=== PATIENT | female | born 1940 | race Caucasian/White ===

== ENCOUNTER 2016-12-30 12:45 | Observation (INO) | payer BC ==
[~2016-12-30] VITALS: Ht 134.6 cm; Wt 46.0 kg
[~2016-12-30 12:45] MED LIST: ACET325T33 PO
[2016-12-30] MEDS ORDERED: ASPIRIN 81 MG TAB PO STA (15:43)
[2016-12-30] MEDS ORDERED: NITROGLYCERIN 2% 1 GM OINT PKT TD STA (15:43)
[2016-12-30] MEDS ORDERED: NITROGLYCERIN (SL) 0.4 MG TAB SL PRN ×2 (16:00→18:30)
--- NOTE | 2016-12-30 16:08 | RADRPT ---
PROCEDURE: XR Chest. CLINICAL INDICATION: Chest pain. TECHNIQUE: Single frontal view. COMPARISON: None. FINDINGS: The lungs are clear. The heart is mildly enlarged. There is no pleural effusion. There is no pneumothorax. IMPRESSION: 1. Mild cardiomegaly. 2. Otherwise normal chest x-ray. RPTAT: QQ .Edgardo Santillan MD, MD Date Time Electronically viewed and signed by .Edgardo Santillan MD, MD on 12/30/2016 16:08 .R/
[2016-12-30 16:57] LABS: BASOPHILS % 0.4 % (0.0-2.0); EOSINOPHILS # 0.1 10^3/ul (0.0-0.5); EOSINOPHILS % 1.8 % (0.0-7.0); HEMATOCRIT 42.1 % (37.0-47.0); HEMOGLOBIN 14.2 g/dl (12.0-16.0); LYMPHOCYTES # 2.2 10^3/ul (0.8-2.9); LYMPHOCYTES % 31.6 % (15.0-51.0); MEAN CORPUSCULAR HEMOGLOBIN 31.6 pg (29.0-33.0); MEAN CORPUSCULAR HGB CONC 33.7 g/dl (32.0-37.0); MEAN CORPUSCULAR VOLUME 93.6 fl (82.0-101.0); MEAN PLATELET VOLUME 10.7 fl (7.4-10.4); MONOCYTE # 0.4 10^3/ul (0.3-0.9); MONOCYTES % 6.2 % (0.0-11.0); NEUTROPHIL # 4.2 10^3/ul (1.6-7.5); NEUTROPHILS % 59.9 % (39.0-77.0); PLATELET COUNT 208 10^3/UL (140-415); RED CELL DISTRIBUTION WIDTH 13.7 % (11.5-14.5); WHITE BLOOD COUNT 7.1 10^3/ul (4.8-10.8)
[2016-12-30] MEDS ORDERED: ONDANSETRON 4 MG INJ IV PRN ×3 (17:00→18:30)
[2016-12-30] MEDS ORDERED: ACETAMINOPHEN 325 MG TAB PO PRN ×3 (17:00→18:30)
[2016-12-30 17:01] LABS: POSITIVE DIFF @See below
[2016-12-30 17:14] LABS: ANION GAP 15 (8-16); BLOOD UREA NITROGEN 19 mg/dl (7-20); CALCIUM 9.1 mg/dl (8.4-10.2); CARBON DIOXIDE 23 mmol/L (21-31); CHLORIDE 107 mmol/L (97-110); CREATININE 0.67 mg/dl (0.44-1.00); GLUCOSE 96 mg/dl (70-220); POTASSIUM 4.7 mmol/L (3.5-5.1); SODIUM 140 mmol/L (135-144)
[2016-12-30 17:35] LABS: TROPONIN-I < 0.012 ng/ml (0.00-0.12)
--- NOTE | 2016-12-30 18:27 | ERA ---
ER Documentation Chief Complaint Date/Time DATE: 12/30/16 TIME: 18:25 Chief Complaint sent by pmd for cp eval and abnormal ekg c/o cp on and off x 6 mos HPI Patient is a 76-year-old female with possible coronary disease and hypertension who presents with chest pain and shortness of breath. She was seen by her primary doctor Dr. Katz who sent her to the ER because she was concerned about the shortness of breath and an EKG which has changed from a prior EKG. She now is flipped T waves. She has had breathing problems for 6 months per the daughter. The patient has midsternal chest pain as well. She gets short of breath with eating a minimal exertion like walking. She has had no treatment as of yet. ROS All systems reviewed and are negative except as per history of present illness. Medications Home Meds Active Scripts Acetaminophen* (Tylenol*) 325 Mg Tablet, 1 TAB PO Q6 Y for PAIN AND OR ELEVATED TEMP, #20 TAB Prov:HANNA SANTILLAN PA-C 10/15/15 Allergies Allergies: Coded Allergies: Penicillins (Verified Allergy, Intermediate, rash, 12/30/16) PMhx/Soc History of Surgery: No Anesthesia Reaction: No Hx Neurological Disorder: No Hx Respiratory Disorders: No Hx Cardiac Disorders: Yes (HTN) Hx Psychiatric Problems: No Hx Miscellaneous Medical Probl: No Hx Alcohol Use: No Hx Substance Use: No Hx Tobacco Use: No Smoking Status: Never smoker FmHx Family History: No coronary disease Physical Exam Vitals Vital Signs Date Time Temp Pulse Resp B/P Pulse Ox O2 Delivery O2 Flow Rate FiO2 12/30/16 18:00 98.6 50 16 131/67 97 12/30/16 16:26 98.6 51 16 145/63 97 12/30/16 12:53 98.6 51 18 159/108 97 Physical Exam Const: No acute distress Head: Atraumatic Eyes: Normal Conjunctiva ENT: Normal External Ears, Nose and Mouth. Neck: Full range of motion..~ No meningismus. Resp: Clear to auscultation bilaterally Cardio: Regular rate and rhythm, no murmurs Abd: Soft, non tender, non distended. Normal bowel sounds Skin: No petechiae or rashes Back: No midline or flank tenderness Ext: No cyanosis, or edema Neur: Awake and alert Psych: Normal Mood and Affect Result Diagram: 12/30/16 1630 12/30/16 1630 Results 24 hrs Laboratory Tests Test 12/30/16 16:30 White Blood Count 7.110^3/ul Red Blood Count 4.5010^6/ul Hemoglobin 14.2g/dl Hematocrit 42.1% Mean Corpuscular Volume 93.6fl Mean Corpuscular Hemoglobin 31.6pg Mean Corpuscular Hemoglobin Concent 33.7g/dl Red Cell Distribution Width 13.7% Platelet Count 35534^3/UL Mean Platelet Volume 10.7fl Neutrophils % 59.9% Lymphocytes % 31.6% Monocytes % 6.2% Eosinophils % 1.8% Basophils % 0.4% Nucleated Red Blood Cells % 0.0/100WBC Neutrophils # 4.210^3/ul Lymphocytes # 2.210^3/ul Monocytes # 0.410^3/ul Eosinophils # 0.110^3/ul Basophils # 0.010^3/ul Nucleated Red Blood Cells # 0.010^3/ul Sodium Level 140mmol/L Potassium Level 4.7mmol/L Chloride Level 107mmol/L Carbon Dioxide Level 23mmol/L Anion Gap 15 Blood Urea Nitrogen 19mg/dl Creatinine 0.67mg/dl Glucose Level 96mg/dl Calcium Level 9.1mg/dl Troponin I < 0.012ng/ml Current Medications Medications (Trade) Dose Ordered Sig/Seven Route PRN Reason Start Time Stop Time Status Last Admin Dose Admin Aspirin (Aspirin) 162 mg ONCE STAT PO 12/30/16 15:43 12/30/16 15:44 DC 12/30/16 16:23 Nitroglycerin (Nitroglycerin 2% Oint) 1 inch ONCE STAT TD 12/30/16 15:43 12/30/16 15:44 DC 12/30/16 16:23 Nitroglycerin (Nitroglycerin (Sl Tab) 0.4 Mg) 1 tab Q5M UP TO 3 DOSES PRN SL CHEST PAIN 12/30/16 16:00 12/30/16 16:23 Ondansetron HCl (Zofran Inj) 4 mg ER BRIDGE PRN IV NAUSEA AND/OR VOMITING 12/30/16 17:00 12/31/16 16:59 Acetaminophen (Tylenol Tab) 650 mg ER BRIDGE PRN PO MILD PAIN/FEVER 12/30/16 17:00 12/31/16 16:59 12/30/16 17:36 Ondansetron HCl (Zofran Inj) 4 mg ER BRIDGE PRN IV NAUSEA AND/OR VOMITING 12/30/16 18:00 12/31/16 17:59 Acetaminophen (Tylenol Tab) 650 mg ER BRIDGE PRN PO MILD PAIN/FEVER 12/30/16 18:00 12/31/16 17:59 IV Flush (NS 3 ml) 3 ml PER PROTOCOL IV 12/30/16 18:30 UNV Lorazepam (Ativan) 0.5 mg Q6H PRN IV ANXIETY 12/30/16 18:30 UNV Ondansetron HCl (Zofran Inj) 4 mg Q6H PRN IV NAUSEA AND/OR VOMITING 12/30/16 18:30 UNV Aspirin (Aspirin) 81 mg DAILY PO 12/31/16 09:00 UNV Nitroglycerin (Nitroglycerin (Sl Tab) 0.4 Mg) 1 tab Q5M PRN SL CHEST PAIN 12/30/16 18:30 UNV Acetaminophen (Tylenol Tab) 650 mg Q6H PRN PO PAIN LEVEL 1-3 OR FEVER 12/30/16 18:30 UNV Acetaminophen/ Hydrocodone Bitart ([place] (5/325)) 1 tab Q6H PRN PO PAIN LEVEL 4-6 12/30/16 18:30 UNV Acetaminophen/ Hydrocodone Bitart ([place] (5/325)) 2 tab Q6H PRN PO PAIN LEVEL 7-10 12/30/16 18:30 UNV Docusate Sodium (Colace) 100 mg Q12H PRN PO CONSTIPATION 12/30/16 18:30 UNV Magnesium Hydroxide (Milk Of Mag) 30 ml DAILY PRN PO CONSTIPATION 12/30/16 18:30 UNV Bisacodyl (Dulcolax Supp) 10 mg DAILY PRN [place] CONSTIPATION 12/30/16 18:30 UNV Famotidine (Pepcid) 20 mg Q12 PO 12/30/16 21:00 UNV Enoxaparin Sodium (Lovenox) 40 mg DAILY SC 12/31/16 09:00 UNV Procedures/MDM EKG read by me: Rate/Rhythm: Sinus bradycardia Intervals: Normal Impression: Sinus bradycardia with T waves EKG #2 pending at this time Chest x-ray shows no pneumonia or pneumothorax per radiology. Patient is a 76-year-old female with cardiac risk factors who presents with chest pain and shortness of breath. I am concerned for possible acute coronary syndrome. I doubt pneumonia, pneumothorax, pulmonary embolism, or aortic dissection. I spoke with Dr. Dawn for admission to a telemetry bed as the patient has [facility]. The patient will be admitted to a telemetry bed for further workup. She was given aspirin and nitroglycerin empirically. Departure Diagnosis: Primary Impression: Chest pain Qualified Code: R07.9 - Chest pain, unspecified type Condition: YARON Will MD Dec 30, 2016 18:27
[2016-12-30] MEDS ORDERED: BISACODYL 10 MG SUPP PR PRN (18:30)
[2016-12-30] MEDS ORDERED: LORAZEPAM 2 MG INJ IV PRN (18:30)
[2016-12-30] MEDS ORDERED: NACL 0.9% 3 ML SYG IV SCH (18:30)
[2016-12-30] MEDS ORDERED: DOCUSATE SODIUM 100 MG CAP PO PRN (18:30)
[2016-12-30] MEDS ORDERED: HYDROCODONE/APAP (5/325) TAB PO PRN ×2 (18:30)
[2016-12-30] MEDS ORDERED: MAGNESIUM HYDROXIDE 30ML CUP PO PRN (18:30)
--- NOTE | 2016-12-30 19:13 | HP ---
Date/Time of Note Date/Time of Note DATE: 12/30/16 TIME: 19:00 Assessment/Plan VTE Prophylaxis VTE Prophylaxis Intervention: LMWH Lines/Catheters IV Catheter Type (from Nrsg): Saline Lock Assessment/Plan Assessment/Plan 76-year-old female with: 1. Chest pressure, shortness of breath with history of hypertension, according to the PCP EKGs today are change from 6 months ago in terms of the T-wave findings, patient has been admitted to telemetry observation for rule out acute coronary syndrome. Serial cardiac enzymes 2D echocardiogram, check fasting lipid panel Aspirin, blood pressure control Lexiscan stress test in a.m. if cardiac enzymes negative, cardiology consult placed 2. Hypertension: Continue benazepril, hydralazine as needed Prophylaxis: Lovenox for DVT prophylaxis, Pepcid for GI prophylaxis Disposition: Telemetry observation, stress test in a.m., discharge planning depending on stress test result. HPI/ROS Admit Date/Time Admit Date/Time Hx of Present Illness Chief complaint: Chest pain, shortness of breath History of presenting illness: 76-year-old female with history of hypertension, possibly hyperlipidemia who was sent over to the emergency department by her primary care physician with complaints of chest pain, shortness of breath and according to the PCP EKG changes concerning for myocardial ischemia. The patient reports that she has been having substernal chest pressure like something is squeezing on and off for the past 6 months. She reports dyspnea on exertion, she denies orthopnea or PND. She also reports that she feels a squeezing and shortness of breath in the substernal area when she is eating. She denies nausea, vomiting, diaphoresis, lightheadedness, chills. She reports having a cough like a congestion over the past 2 weeks occasionally productive of white phlegm. She denies any previous history of COPD, chronic bronchitis or asthma. She denies any lower extremity edema. According to the daughter, they were told that 3 years ago she almost had " heart attack" but the patient never had a formal diagnosis of coronary artery disease. No history of diabetes mellitus. ROS Constitutional: no complaints Respiratory: cough, shortness of breath Cardiovascular: chest pain Gastrointestinal: no complaints Genitourinary: no complaints Musculoskeletal: no complaints Skin: no complaints Neurologic: no complaints Endocrine: no complaints Psychological: no complaints PMH/Family/Social Past Medical History Hypertension Past Surgical History Past Surgical Hx: appendectomy (Remotely), cholecystectomy (Remotely) Social History Alcohol Use: none Smoking Status: Never smoker Drug Use: none Exam/Review of Systems Vital Signs Vitals Vital Signs Date Time Temp Pulse Resp B/P Pulse Ox O2 Delivery O2 Flow Rate FiO2 12/30/16 18:45 58 19 154/68 98 Room Air 12/30/16 18:00 98.6 Exam Constitutional: alert, oriented, well developed Respiratory: clear to auscultation, normal air movement Cardiovascular: nl pulses, regular rate and rhythm Gastrointestinal: non-tender, soft Musculoskeletal: nl extremities to inspection Extremities: normal pulses, other (No edema, clubbing, cyanosis) Neurological: CAR FERRY CAPTAIN II-XII intact, nl mental status, nl speech, nl strength Labs Result Diagram: 12/30/16 1630 12/30/16 1630 Medications Medications Current Medications Lorazepam (Ativan) 0.5 mg Q6H PRN IV ANXIETY; Start 12/30/16 at 18:30 Ondansetron HCl (Zofran Inj) 4 mg Q6H PRN IV NAUSEA AND/OR VOMITING; Start at 18:30 Aspirin (Aspirin) 81 mg DAILY PO ; Start 12/31/16 at 09:00 Nitroglycerin (Nitroglycerin (Sl Tab) 0.4 Mg) 1 tab Q5M PRN SL CHEST PAIN; Start 12/30/16 at 18:30 Acetaminophen (Tylenol Tab) 650 mg Q6H PRN PO PAIN LEVEL 1-3 OR FEVER; Start at 18:30 Acetaminophen/ Hydrocodone Bitart ([place] (5/325)) 1 tab Q6H PRN PO PAIN LEVEL 4 -6; Start 12/30/16 at 18:30 Acetaminophen/ Hydrocodone Bitart ([place] (5/325)) 2 tab Q6H PRN PO PAIN LEVEL 7 -10; Start 12/30/16 at 18:30 Docusate Sodium (Colace) 100 mg Q12H PRN PO CONSTIPATION; Start 12/30/16 at 18: 30 Magnesium Hydroxide (Milk Of Mag) 30 ml DAILY PRN PO CONSTIPATION; Start at 18:30 Bisacodyl (Dulcolax Supp) [address] CONSTIPATION; Start 12/30/16 at 18 :30 Famotidine (Pepcid) 20 mg Q12 PO ; Start 12/30/16 at 21:00 Enoxaparin Sodium (Lovenox) 40 mg DAILY SC ; Start 12/31/16 at 09:00 Procedures Procedures PROCEDURE: XR Chest. CLINICAL INDICATION: Chest pain. TECHNIQUE: Single frontal view. COMPARISON: None. FINDINGS: The lungs are clear. The heart is mildly enlarged. There is no pleural effusion. There is no pneumothorax. IMPRESSION: 1. Mild cardiomegaly. 2. Otherwise normal chest x-ray. RPTAT: QQ .Edgardo Santillan MD, MD Date Time Electronically viewed and signed by .Edgardo Santillan MD, MD on 12/30/2016 16:08 .R/ EKG at PCP office, showing some anterolateral T-wave inversion otherwise no acute ischemic changes, EKG here at [facility] similar. On both EKGs heart rate in the high 50s CHERYL GARAY Dec 30, 2016 19:13
[2016-12-30] MEDS ORDERED: hydrALAzine 20 MG INJ IV PRN (19:30)
[2016-12-30 20:40] VITALS: TEMP 98.6
[2016-12-30 20:55] VITALS: Ht 134.6 cm; Wt 46.0 kg
[2016-12-30 21:15] VITALS: PULSE 49
[2016-12-30] MEDS: BENAZEPRIL 20 MG TAB PO SCH (21:23)
[2016-12-30] MEDS: FAMOTIDINE 20 MG TAB PO SCH (21:24)
[2016-12-30 21:46] VITALS: BP 133/62; RESP 16
[2016-12-30 22:59] LABS: CREATINE KINASE 53 IU/L (23-200)
[2016-12-30 23:13] LABS: CK-MB 0.65 ng/ml (0.0-2.4)
[2016-12-30 23:14] LABS: TROPONIN-I < 0.012 ng/ml (0.00-0.12)
[2016-12-31] VITALS (10 sets, daily range): BP systolic 107–114; BP diastolic 51–70; PULSE 44–68; RESP 16–17
[2016-12-31 04:34] LABS: CREATINE KINASE 50 IU/L (23-200)
[2016-12-31 04:36] LABS: ALBUMIN 3.8 g/dl (3.3-4.9); ALBUMIN/GLOBULIN RATIO 0.95; BILIRUBIN,INDIRECT 0.9 mg/dl (0-1.1); BILIRUBIN,TOTAL 0.9 mg/dl (0.2-1.3); CHOL/HDL RATIO 6.6 RATIO; CREATININE 0.79 mg/dl (0.44-1.00); POTASSIUM 4.1 mmol/L (3.5-5.1); TOTAL PROTEIN 7.8 g/dl (6.1-8.1)
[2016-12-31 04:47] LABS: CK-MB 0.51 ng/ml (0.0-2.4)
[2016-12-31 04:51] LABS: TROPONIN-I < 0.012 ng/ml (0.00-0.12)
[2016-12-31] MEDS: FAMOTIDINE 20 MG TAB PO SCH (08:30)
[2016-12-31] MEDS: BENAZEPRIL 20 MG TAB PO SCH (08:31)
[2016-12-31] MEDS ORDERED: ENOXAPARIN 40 MG/0.4 ML SYG SC SCH (09:00)
[2016-12-31] MEDS ORDERED: ASPIRIN 81 MG TAB PO SCH (09:00)
--- NOTE | 2016-12-31 11:20 | CONS ---
Date/Time of Note Date/Time of Note DATE: 12/31/16 TIME: 11:11 Assessment/Plan Assessment/Plan Additional Assessment/Plan Atypical chest pain HTN Abnormal EKG -normal trops and atypical chestpain -continue bp management -no dynamic ekg changes -lexiscan cardiolyte today > if normal d/c home Consultation Date/Type/Reason Admit Date/Time Hx of Present Illness Patient is a 76-year-old female with possible coronary disease and hypertension who presents with chest pain and shortness of breath. She was seen by her primary doctor Dr. Katz who sent her to the ER because she was concerned about the shortness of breath and an EKG which has changed from a prior EKG. She now is flipped T waves. She has had breathing problems for 6 months per the daughter. The patient has midsternal chest pain as well. She gets short of breath with eating a minimal exertion like walking. She has had no treatment as of yet. She has no exdritnal symtpoms with no cardiac history and hemodynacmially stable Respiratory: cough, shortness of breath Cardiovascular: chest pain Gastrointestinal: no complaints Genitourinary: no complaints Musculoskeletal: no complaints Skin: no complaints Neurologic: no complaints Psychological: no complaints Past Surgical History Past Surgical Hx: appendectomy (Remotely), cholecystectomy (Remotely) Social History Alcohol Use: none Smoking Status: Never smoker Drug Use: none Exam/Review of Systems Vital Signs Vitals Vital Signs Date Time Temp Pulse Resp B/P Pulse Ox O2 Delivery O2 Flow Rate FiO2 12/31/16 08:22 54 12/31/16 07:45 97.5 17 110/51 97 12/30/16 20:40 Room Air Results Result Diagram: 12/30/16 1630 12/31/16 0357 Results 24 hrs Laboratory Tests Test 12/30/16 16:30 12/30/16 22:32 12/31/16 03:52 12/31/16 03:57 White Blood Count 7.1 Red Blood Count 4.50 Hemoglobin 14.2 Hematocrit 42.1 Mean Corpuscular Volume 93.6 Mean Corpuscular Hemoglobin 31.6 Mean Corpuscular Hemoglobin Concent 33.7 Red Cell Distribution Width 13.7 Platelet Count 208 Mean Platelet Volume 10.7 H Neutrophils % 59.9 Lymphocytes % 31.6 Monocytes % 6.2 Eosinophils % 1.8 Basophils % 0.4 Nucleated Red Blood Cells % 0.0 Neutrophils # 4.2 Lymphocytes # 2.2 Monocytes # 0.4 Eosinophils # 0.1 Basophils # 0.0 Nucleated Red Blood Cells # 0.0 Sodium Level 140 142 Potassium Level 4.7 4.1 Chloride Level 107 111 H Carbon Dioxide Level 23 24 Anion Gap 15 11 Blood Urea Nitrogen 19 23 H Creatinine 0.67 0.79 Glucose Level 96 98 Calcium Level 9.1 9.0 Troponin I < 0.012 < 0.012 < 0.012 B-Type Natriuretic Peptide 186 H Creatine Kinase 53 50 Creatine Kinase Index 1.2 1.0 Creatinine Kinase MB (Mass) 0.65 0.51 Hemoglobin A1c 5.8 Total Bilirubin 0.9 Direct Bilirubin 0.00 Indirect Bilirubin 0.9 Aspartate Amino Transf (AST/SGOT) 25 Alanine Aminotransferase (ALT/SGPT) 33 Alkaline Phosphatase 103 Total Protein 7.8 Albumin 3.8 Globulin 4.00 H Albumin/Globulin Ratio 0.95 Triglycerides Level 264 H Cholesterol Level 225 H LDL Cholesterol, Calculated 138 HDL Cholesterol 34 Cholesterol/HDL Ratio 6.6 Medications Medications Current Medications Lorazepam (Ativan) 0.5 mg Q6H PRN IV ANXIETY; Start 12/30/16 at 18:30 Ondansetron HCl (Zofran Inj) 4 mg Q6H PRN IV NAUSEA AND/OR VOMITING; Start at 18:30 Aspirin (Aspirin) 81 mg DAILY PO Last administered on 12/31/16t 08:29; Admin Dose 81 MG; Start 12/31/16 at 09:00 Nitroglycerin (Nitroglycerin (Sl Tab) 0.4 Mg) 1 tab Q5M PRN SL CHEST PAIN; Start 12/30/16 at 18:30 Acetaminophen (Tylenol Tab) 650 mg Q6H PRN PO PAIN LEVEL 1-3 OR FEVER; Start at 18:30 Acetaminophen/ Hydrocodone Bitart ([place] (5/325)) 1 tab Q6H PRN PO PAIN LEVEL 4 -6; Start 12/30/16 at 18:30 Acetaminophen/ Hydrocodone Bitart ([place] (5/325)) 2 tab Q6H PRN PO PAIN LEVEL 7 -10; Start 12/30/16 at 18:30 Docusate Sodium (Colace) 100 mg Q12H PRN PO CONSTIPATION; Start 12/30/16 at 18: 30 Magnesium Hydroxide (Milk Of Mag) 30 ml DAILY PRN PO CONSTIPATION; Start at 18:30 Bisacodyl (Dulcolax Supp) 10 mg DAILY PRN [place] CONSTIPATION; Start 12/30/16 at 18 :30 Famotidine (Pepcid) 20 mg Q12 PO Last administered on 12/31/16 08:30; Admin Dose 20 MG; Start 12/30/16 at 21:00 Enoxaparin Sodium (Lovenox) 40 mg DAILY SC Last administered on 12/31/16 08:30 ; Admin Dose 40 MG; Start 12/31/16 at 09:00 Benazepril HCl (Lotensin) 20 mg BID PO Last administered on 12/30/16 21:23; Admin Dose 20 MG; Start 12/30/16 at 21:00 Hydralazine HCl (Apresoline) 10 mg Q8H PRN IV ELEVATED BLOOD PRESSURE; Start at 19:30 SHARAD FAM MD Dec 31, 2016 11:20
[2016-12-31] MEDS ORDERED: REGADENOSON 0.4 MG/5 ML SYG ONE (11:25)
--- NOTE | 2016-12-31 15:38 | RADRPT ---
PROCEDURE: Nuclear medicine myocardial stress and rest scan. CLINICAL INDICATION: Chest pain. TECHNIQUE: The patient was stressed with 0.4 mg IV Lexiscan. 9.0 mCi technetium 99m Tetrofosmin ( Myoview) was administered rest. 33.5 mCi technetium 99m Tetrofosmin (Myoview) was administered dur ing stress. Images were obtained and reconstructed in the short axis, horizontal long axis, and chikis tical long axis. Gated images were obtained and ejection fraction was calculated. COMPARISON: No prior study is available for comparison. FINDINGS: The stress and rest images demonstrate normal uptake throughout. There is no fixed abnormality or r eversible abnormality. There is no evidence of transient ischemic dilatation. Wall motion is normal. There is normal wall thickening during systole. Ejection fraction at stress is 82%. IMPRESSION: 1. No evidence of stress induced myocardial ischemia. 2. Ejection fraction at stress is 82%. RPTAT: QQ .Edgardo Santillan MD, MD Date Time Electronically viewed and signed by .Edgardo Santillan MD, on 12/31/2016 15:37 .R/
--- NOTE | 2016-12-31 16:40 | PN ---
Date/Time of Note Date/Time of Note DATE: 12/31/16 TIME: 16:35 Assessment/Plan VTE Prophylaxis VTE Prophylaxis Intervention: LMWH Lines/Catheters IV Catheter Type (from Nrsg): Saline Lock Urinary Cath still in place: No Assessment/Plan Assessment/Plan 76-year-old female with: 1. Chest pressure, shortness of breath with history of hypertension, according to the PCP EKGs today are change from 6 months ago in terms of the T-wave findings, patient has been admitted to telemetry observation for rule out acute coronary syndrome. 2D echocardiogram wnl, Serial cardiac enzymes negative and stress test negative Aspirin, blood pressure control Appreciate Cardio recs 2. Hypertension: Continue benazepril, hydralazine as needed Prophylaxis: Lovenox for DVT prophylaxis, Pepcid for GI prophylaxis Disposition: d/c home today and f/u with PCP within 1 week. Subjective 24 Hr Interval Summary Free Text/Dictation Patient doing well No complaints Occasional marvin but unchanged, no pauses or blocks. Exam/Review of Systems Vital Signs Vitals Vital Signs Date Time Temp Pulse Resp B/P Pulse Ox O2 Delivery O2 Flow Rate FiO2 12/31/16 16:17 68 12/31/16 15:53 98.1 17 109/61 94 12/30/16 20:40 Room Air Exam Constitutional: alert, oriented, well developed Respiratory: clear to auscultation, normal air movement Cardiovascular: nl pulses, regular rate and rhythm Gastrointestinal: non-tender, soft Musculoskeletal: nl extremities to inspection Extremities: normal pulses, other (no edema, clubbing or cyanosis ) Neurological: COLLECTIONS AGENT II-XII intact, nl mental status, nl speech, nl strength Results Result Diagram: 12/30/16 1630 12/31/16 0357 Results 24 hrs Laboratory Tests Test 12/30/16 22:32 12/31/16 03:52 12/31/16 03:57 Creatine Kinase 53 50 Creatine Kinase Index 1.2 1.0 Creatinine Kinase MB (Mass) 0.65 0.51 Troponin I < 0.012 < 0.012 Hemoglobin A1c 5.8 Sodium Level 142 Potassium Level 4.1 Chloride Level 111 H Carbon Dioxide Level 24 Anion Gap 11 Blood Urea Nitrogen 23 H Creatinine 0.79 Glucose Level 98 Calcium Level 9.0 Total Bilirubin 0.9 Direct Bilirubin 0.00 Indirect Bilirubin 0.9 Aspartate Amino Transf (AST/SGOT) 25 Alanine Aminotransferase (ALT/SGPT) 33 Alkaline Phosphatase 103 Total Protein 7.8 Albumin 3.8 Globulin 4.00 H Albumin/Globulin Ratio 0.95 Triglycerides Level 264 H Cholesterol Level 225 H LDL Cholesterol, Calculated 138 HDL Cholesterol 34 Cholesterol/HDL Ratio 6.6 Medications Medications Current Medications Lorazepam (Ativan) 0.5 mg Q6H PRN IV ANXIETY; Start 12/30/16 at 18:30 Ondansetron HCl (Zofran Inj) 4 mg Q6H PRN IV NAUSEA AND/OR VOMITING; Start at 18:30 Aspirin (Aspirin) 81 mg DAILY PO Last administered on 12/31/16 08:29; Admin Dose 81 MG; Start 12/31/16 at 09:00 Nitroglycerin (Nitroglycerin (Sl Tab) 0.4 Mg) 1 tab Q5M PRN SL CHEST PAIN; Start 12/30/16 at 18:30 Acetaminophen (Tylenol Tab) 650 mg Q6H PRN PO PAIN LEVEL 1-3 OR FEVER; Start at 18:30 Acetaminophen/ Hydrocodone Bitart ([place] (5/325)) 1 tab Q6H PRN PO PAIN LEVEL 4 -6; Start 12/30/16 at 18:30 Acetaminophen/ Hydrocodone Bitart ([place] (5/325)) 2 tab Q6H PRN PO PAIN LEVEL 7 -10; Start 12/30/16 at 18:30 Docusate Sodium (Colace) 100 mg Q12H PRN PO CONSTIPATION; Start 12/30/16 at 18: 30 Magnesium Hydroxide (Milk Of Mag) 30 ml DAILY PRN PO CONSTIPATION; Start at 18:30 Bisacodyl (Dulcolax Supp) 10 mg DAILY PRN [place] CONSTIPATION; Start 12/30/16 at 18 :30 Famotidine (Pepcid) 20 mg Q12 PO Last administered on 12/31/16 08:30; Admin Dose 20 MG; Start 12/30/16 at 21:00 Enoxaparin Sodium (Lovenox) 40 mg DAILY SC Last administered on 12/31/16 08:30 ; Admin Dose 40 MG; Start 12/31/16 at 09:00 Benazepril HCl (Lotensin) 20 mg BID PO Last administered on 12/30/16 21:23; Admin Dose 20 MG; Start 12/30/16 at 21:00 Hydralazine HCl (Apresoline) 10 mg Q8H PRN IV ELEVATED BLOOD PRESSURE; Start at 19:30 CHERYL GARAY Dec 31, 2016 16:40
--- NOTE | 2016-12-31 16:40 | PDOCDIS ---
Discharge Instructions CONDITION Patient Condition: Good HOME CARE INSTRUCTIONS: Special Diet: cardiac ACTIVITY: Activity Restrictions: Slowly Increase Activity FOLLOW UP/APPOINTMENTS Follow-up Plan Follow up with PCP within 1 week OTHER ORDERS: Other Orders: Resume Home BP medication, Enalapril CHERYL GARAY Dec 31, 2016 16:40
[2016-12-31] MEDS ORDERED: ASPI81TA3 PO (16:41)
[2016-12-31] MEDS ORDERED: ATOR20TA38 PO (17:06)
[2016-12-31] MEDS ORDERED: ATORVASTATIN 20 MG TAB PO SCH (21:00)
--- NOTE | 2017-01-01 11:48 | RADRPT ---
Echocardiogram Report Patient Name: KATELYN FU Gender: Female Date: 1940 Study Date: 31-Dec-2016 Legal Activity Adjudicator: MIGNON Location: [facility] Height(Cm): 135 Weight(Kg): 46 BSA: 1.31 Ref. Physician: ALONSO GARAY Quality: Technically Difficult Study Procedures: Transthoracic echocardiogram with complete 2D, M-Mode, and Doppler examination. Indications: Chest Pain. 2D/M Mode Doppler Measurement Value Normal Ranges Measurement Value Normal Ranges AoR Diam MM 2.3 cm AV Peak Nelson 1.8 m/sec LVIDd 2D 3.4 3.5 - 5.6 cm AV Peak PG 12.4 mmHg LVIDs 2D 2.1 2.1 - 4.1 cm AI Peak PG 84.1 mmHg LVPWd 2D 1.0 0.6 - 1.1 cm AI Peak Nelson 4.6 m/sec IVSd 2D 1.2 0.6 - 1.1 cm AI PHT 589.3 msec EDV 2D 46.9 cm3 LVOT Peak Nelson 0.9 m/sec ESV 2D 8.7 cm3 LVOT Peak PG 3.1 mmHg LA Dimen 2D 3.3 2.3 - 4.0 cm TR Peak Nelson 2.7 m/sec TR Peak PG 28.3 mmHg PV Peak Nelson 0.9 m/sec PV Peak PG 3.0 mmHg RVSP 31.3 mmHg Findings Left Ventricle: Normal left ventricular systolic function. Normal left ventricular cavity size. Mild hypertrophy of the basal septum. Ejection fraction is visually estimated at 65 %. Tissue Doppler/Mitral Doppler indices are indeterminate in this study due to the presence of aortic insufficiency. Right Ventricle: Normal right ventricular size. Normal right ventricular systolic function. Left Atrium: There is severe enlargement of left atrium appreciated best from apical images and LA volumes. LA Volume Index=60. Right Atrium: The right atrium is normal in size. Atrial Septum: Atrial septum color Doppler interrogation consistent with a PFO. Mitral Valve: Normal appearance of the mitral valve. Mild mitral valve regurgitation. Aortic Valve: Aortic valve not well visualized, poor parasternal images. No hemodynamically significant aortic stenosis by doppler. Aortic cusps appear mildly calcified. Mild aortic valve regurgitation. Tricuspid Valve: Normal appearance of the tricuspid valve. Estimated peak PA systolic pressure 31 mmHg. There is mild tricuspid regurgitation. Pulmonic Valve: Pulmonic valve not well visualized. Pericardium: Normal pericardium with no significant pericardial effusion. Aorta: Normal aortic root. IVC: Normal size and normal respiratory collapse consistent with normal right atrial pressure. Pulmonary Artery: Not well visualized. Conclusions 1.Normal left ventricular systolic function. Normal left ventricular cavity size. Mild hypertrophy of the basal septum. Ejection fraction is visually estimated at 65 %. Tissue Doppler/Mitral Doppler indices are indeterminate in this study due to the presence of aortic insufficiency. 2.Aortic valve not well visualized, poor parasternal images. No hemodynamically significant aortic stenosis by doppler. Aortic cusps appear mildly calcified. Mild aortic valve regurgitation. Electronically Signed By: Goran Clarke 01-Jan-2017 11:48:44 -0700 Patient Name: KATELYN FU Study Date: 31-Dec-2016 [id number]
== END 2016-12-31 18:47 | disposition home or self-care (01) ==
LOC: E/R 12:45 → INTOOBSV 17:45 → MS4 17:45
PROVIDERS: ADMIT Internal Medicine; ATTEND Internal Medicine
DX: R07.89 Other chest pain (principal); R94.31 Abnormal electrocardiogram [ECG] [EKG]; I10 Essential (primary) hypertension; Z79.82 Long term (current) use of aspirin
CPT/HCPCS: 71010; 78452; 80048; 80053; 80061; 82550; 82553; 83036; 83880; 84075; 84484; 85025; 93005; 93017; 93306; 99285; A9500; A9505; J1650; J2785; Z7500; Z7610; G0378